=== PATIENT | male | born 1960 | race Caucasian/White ===

== ENCOUNTER 2022-09-14 09:54 | Outpatient (CLI) | payer OTHER, SELFPAY ==
--- NOTE | 2022-09-14 10:15 | MR_ITS ---
[address] [address] Phone:?[phone] Fax:?[phone] Referring Physician Information: Cruzito Rodriguez M.D. [id number] [facility] [address] Phone:?[phone] Fax:?[phone] Patient:Thu Monroe D.O.B:?1960 Sex:?Male Phone:?[phone] [facility] MRN:?[id number] Exam Date:?09/14/2022 ? EXAM: MRI OF THE LEFT KNEE CLINICAL INFORMATION: The patient is a 62-year-old with left knee pain. Evaluate for medial meniscal tear. PRIOR SURGERY: None reported. COMPARISON STUDIES: There are no prior studies available for comparison. TECHNICAL INFORMATION: Imaging was performed on a high-field, 1.5 Shaina MR scanner. Axial proton-density and fat-suppressed T2 imaging of the left knee was performed in addition to sagittal proton-density and fat-suppressed proton- density imaging. Coronal proton-density and coronal STIR imaging was also produced. FINDINGS: Articular/Extraarticular collections: Effusion: Moderate. Popliteal cyst: Small, seen on axial series 4 image 26. Loose bodies: No well-defined intra-articular loose bodies are present. Subcutaneous and extraarticular soft tissues: Nonspecific subcutaneous soft tissue edema and/or hemorrhage can be seen along the anterior aspect of the patella and patellar tendon on sagittal series 6 image 21. Osseous structures: Reactive marrow edema can be seen involving the medial femoral condyle and medial tibial plateau on coronal series 8 images 18 and 19, in keeping with the medial meniscal tearing discussed below. Additional reactive bony changes are seen involving the tibial spines. Cortical irregularity, subcortical cystic change, and subcortical edema can be seen along the articular surfaces of the patellofemoral articulation, in keeping with chondromalacia and chondral loss described below. No other bony abnormalities about the knee are present. Ligamentous structures: ACL: Intact and normal in appearance. PCL: Intact and normal in appearance. MCL: Intact and normal in appearance. LCL: Intact and normal in appearance. Posterolateral corner: Intact and normal in appearance. Posteromedial corner: No posteromedial corner soft tissue injury. Semimembranosus and pes anserine tendons demonstrate no tendinopathy or associated bursitis. Extensor mechanism/Patellar retinacular structures: Patellar tendon: Intact, without tendinopathy. Quadriceps tendon: Intact, without tendinopathy. Retinacula: The medial and lateral retinacula are intact. The medial patellofemoral ligament is intact. Medial compartment: Medial meniscus: The medial meniscus is abnormal in appearance. There is broad- based, complex, predominantly inferior surface and apical free edge tearing of the middle and posterior portions of the medial meniscus seen on coronal series 7 image 20 and on sagittal series 6 image 11. The broad-based area of tearing measures approximately 29 mm in mediolateral dimension and 28 mm in anteroposterior dimension. The anterior horn appears intact. No parameniscal cyst formation is identified. Medial femoral condyle: Grade II to III chondromalacia can be seen along the weightbearing surfaces of the medial femoral condyle. Medial tibial plateau: Grade II chondromalacia can be seen along the weightbearing surfaces of the medial tibial plateau. Lateral compartment: Lateral meniscus: No evidence for lateral meniscal tearing is present. No evidence for parameniscal cyst formation can be seen. Lateral femoral condyle: No chondromalacia, chondral defect, or osteochondral abnormality. Lateral tibial plateau: No chondromalacia, chondral defect, or osteochondral abnormality. Patellofemoral compartment: Patella: Full-thickness and near full-thickness chondral loss can be seen along the medial patellar facet with additional grade II to III chondromalacia of the patellar apex and lateral facet. Underlying bony changes are seen. Trochlea: Full-thickness and near full-thickness chondral loss can be seen along the central articular surfaces of the femoral trochlea on sagittal series 6 image 16 and on axial series 4 image 21. The area measures approximately 21 mm in greatest dimension. Underlying bony changes are present. Neurovascular: No definite neurovascular abnormalities are seen. CONCLUSION: 1. Broad-based, complex tearing of the middle and posterior portions of the medial meniscus. No lateral meniscal tearing is seen. 2. Chondromalacia and chondral loss can be seen involving the medial and patellofemoral joint compartments as described above. 3. Moderate knee joint effusion and small popliteal cyst. 4. The cruciate and collateral ligaments appear intact. 5. Reactive bony changes along the medial and patellofemoral joint compartments can be seen as described above. [facility] Electronically signed on 09/14/2022 1:13:00 PM by Ascencion Skelton M.D.
== END 2022-09-14 09:55 | disposition home or self-care (01) ==
PROVIDERS: PCP Nurse Practitioner Family; Visit Provider Orthopaedic Surgery Sports Medicine
DX: M25.562 Pain in left knee (principal); S83.242A Other tear of medial meniscus, current injury, left knee, initial encounter; M22.42 Chondromalacia patellae, left knee; M25.462 Effusion, left knee
CPT/HCPCS: 73721

== ENCOUNTER 2022-10-16 12:09 | Outpatient (CLI) | payer OTHER, SELFPAY ==
[2022-10-16 13:42] LABS: Albumin* 4.6 g/dL (3.3-5.0); Chloride* 102 mmol/L (96-114); Sodium* 139 mmol/L (135-149)
[2022-10-16 13:44] LABS: Carbon Dioxide* 29 mmol/L (20-32); Cholesterol* 172 mg/dL (90-199); Creatinine* 0.8 mg/dL (0.5-1.5); Estimated Glomerular Filt Rate 101 ml/min
[2022-10-16 13:45] LABS: Alanine Aminotransferase* 27 U/L (4-50); Alkaline Phosphatase* 85 U/L (40-150); Aspartate Amino Transferase* 29 U/L (12-35); Bilirubin Total* 1.5 mg/dL (0.1-1.5); Blood Urea Nitrogen* 13 mg/dL (7-30); Calcium* 9.4 mg/dL (8.4-10.6); Glucose* 100 mg/dL (60-115); HDL Cholesterol* 65 mg/dL (>=40); LDL Cholesterol Calculated 77 mg/dL (<100); Total Protein* 7.5 g/dL (6.0-8.3); Triglycerides* 151 mg/dL (40-149)
[2022-10-16 14:12] LABS: PSA Screen* 1.62 ng/mL (0.10-4.00)
== END 2022-10-16 12:10 | disposition home or self-care (01) ==
PROVIDERS: PCP Nurse Practitioner Family; Visit Provider Nurse Practitioner Family
DX: E78.5 Hyperlipidemia, unspecified (principal); I10 Essential (primary) hypertension; I97.3 Postprocedural hypertension; Z51.81 Encounter for therapeutic drug level monitoring; Z90.5 Acquired absence of kidney; Z12.5 Encounter for screening for malignant neoplasm of prostate
CPT/HCPCS: 80053; 80061; 84153

== ENCOUNTER 2022-11-07 07:22 | Day surgery (SDC) | payer OTHER, SELFPAY ==
[2022-11-07] VITALS (12 sets, daily range): BP systolic 113–155; BP diastolic 65–82; PULSE 56–88; RESP 12–21; TEMP 36.3–37.2; O2SAT 96–98; BMI 28.3
[2022-11-07] MEDS: LACTATED RINGERS 1000 ML 1,000 ML 100 ML IV (08:00)
[2022-11-07] MEDS: SODIUM CHLORIDE 0.9 % (FLUSH) 10 ML SYRINGE IVF (08:00)
--- NOTE | 2022-11-07 08:07 | W.ANESCHARGE ---
Anesthesia Charges Start Date/Time Anesthesia Start Date: 11/07/22 Anesthesia Start Time: 09:08 Stop Date/Time Anesthesia Stop Date: 11/07/22 Anesthesia Stop Time: 10:05
[2022-11-07] MEDS: CEFAZOLIN 2 GM in 0.9 % SODIUM CHLORIDE Mini-bag 100 ML IVPB (09:25)
[2022-11-07] MEDS: ROPIVACAINE 0.5% 30 ML 150 MG INJECTION (09:50)
--- NOTE | 2022-11-07 09:54 | P.ORPRC_ITS ---
Procedure Note Date of procedure: 11/07/22 Procedure: PREOPERATIVE DIAGNOSIS: 1. Left knee medial meniscus tear POSTOPERATIVE DIAGNOSIS: 1. Left knee medial meniscus tear 2. 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 Left knee arthroscopic partial medial meniscectomy 2. Left knee arthroscopic chondroplasty medial femoral condyle, loose chondral flaps SURGEON: Cruzito Rodriguez M.D. DIRECTOR OF REGIONAL SALES: Ashish COX. Of note, an spa assistant manager was critical for this case to aid in patient positioning, knee manipulation, instrument exchange, and closure. ANESTHESIA: Spinal EBL: 2ml TOURNIQUET: 25 minutes at 300 torr COMPLICATIONS: None evident INDICATIONS: The patient is a pleasant 62-year-old male who has experienced left knee pain particularly with any twisting or turning. Physical exam was concerning for medial meniscus tear, this was confirmed on MRI. Additionally, attempted nonoperative management has been tried, and failed. Thus, surgery was recommended. FINDINGS: Complex tearing posterior horn to midbody even approach an anterior horn medial meniscus. Grade 3 chondromalacia broadly throughout the weight- bearing portion medial femoral condyle. ACL and PCL were intact robust. Lateral compartment showed intact lateral meniscus and healthy articular cartilage. Trochlear groove showed grade 4 chondromalacia in a region measuring approximately 12 mm in diameter distally. Patella showed grade 3 chondromalacia patella median ridge. No loose bodies appreciated DESCRIPTION OF PROCEDURE: After a thorough discussion of risks, benefits, and alternatives, the patient was brought to the operating room and placed upon the operating table. Induction of anesthesia was undertaken as previously noted. 2g iv Ancef was administered within 1 hr of incision preoperatively. Appropriate time-out was performed identifying proper patient, site, and procedure. The left lower extremity was prepped and draped in the appropriate sterile fashion using ChloraPrep. The limb was exsanguinated and tourniquet inflated. Anterolateral and anteromedial portals were established with an 11 blade, and a diagnostic arthroscopy was performed. This identified the findings as noted above. Following the diagnostic arthroscopy, a partial medial menisectomy was performed with the combination of basket forceps and a motorized shaver. Following this, the meniscus was re-probed and found to be stable. Approximately 20-25 % of the overall meniscus required resection. At this stage, the shaver was reinserted into the suprapatellar pouch and all remaining meniscal debris was evacuated. Instruments were removed, excess fluid was drained, and closure performed with 4-0 Monocryl with Steri-Strips. Dressings were applied, the tourniquet deflated, and the patient was awoken from anesthesia and transferred to the PACU in stable condition. PLAN: 1. Weightbear as tolerated operative extremity. Crutch / walker ambulation assistance PRN. Straight leg raise to be initiated starting tomorrow by the patient. 2. Ice, acetominophen and/or ibuprofen, and Percocet for pain as needed. 3. Knee range of motion and quad sets/straight leg raise regularly 4. Follow up with PA visit in 7-10 days. for a wound check. Initiate physical therapy at that time
--- NOTE | 2022-11-07 10:11 | W.ANESCHARGE ---
Anesthesia Charges Start Date/Time Anesthesia Start Date: 11/07/22 Anesthesia Start Time: 09:08 Stop Date/Time Anesthesia Stop Date: 11/07/22 Anesthesia Stop Time: 10:05
[2022-11-07] MEDS: IBUPROFEN 200 MG TABLET 400 MG PO (11:01)
== END 2022-11-07 11:46 | disposition home or self-care (01) ==
PROVIDERS: PCP Nurse Practitioner Family; Visit Provider Orthopaedic Surgery Sports Medicine
PROC: (CPT 29870; principal; 2022-11-07 09:00)
DX: S83.231A Complex tear of medial meniscus, current injury, right knee, initial encounter (principal); M94.262 Chondromalacia, left knee
CPT/HCPCS: 29881; 01400; A9270; J0690; J1100; J2250; J2704; J2795; J3010; J3490; J7120

== ENCOUNTER 2023-01-02 11:00 | Outpatient (RCR) | payer OTHER, SELFPAY | END 2023-02-21 14:33 | disposition home or self-care (01) | PROVIDERS: PCP Nurse Practitioner Family; Visit Provider Orthopaedic Surgery Sports Medicine | DX: S83.232D Complex tear of medial meniscus, current injury, left knee, subsequent encounter (principal); M25.562 Pain in left knee; M62.81 Muscle weakness (generalized); Z98.890 Other specified postprocedural states; Z51.89 Encounter for other specified aftercare | CPT/HCPCS: 97110; 97112; 97140; 97161; 97530 ==

== ENCOUNTER 2023-11-22 09:23 | Outpatient (CLI) | payer OTHER, SELFPAY ==
--- OUTSIDE RECORDS SUMMARY | 2023-11-22 10:33 | XMS_ITS | Clinical Summary ---
Author Name Unknown Organization [facility] Address [place], [place] [address] Care Team Providers Care Press Writer Name Role Phone Pcp, No Primary Care Provider Unavailabl e Medications No known medications Social History Tobacco Use Types Packs/Day Years Used Date Smoking Tobacco: Never Assessed Sex and Gender Information Value Date Recorded Sex Assigned at Not on file Gender Identity Not on file Sexual Orientation Not on file Last Filed Vital Signs Vital Sign Reading Time Taken Comments Blood Pressure 133/87 05/07/2016 8:44 AM CDT Pulse 71 05/07/2016 8:44 AM CDT Temperature - - Respiratory Rate - - Oxygen Saturation 98% 05/07/2016 8:44 AM CDT Inhaled Oxygen Concentration - - Weight 88.9 kg (196 lb) 05/07/2016 8:44 AM CDT Height - - Body Mass Index - - Plan of Treatment Health Maintenance Due Date Last Done Comments Tdap 1973 Depression screening for age 12+ 1974 HIV for age 15-65 1977 BMI (ht and wt on same day) for age 18+ 1980 Hepatitis C screening for ag e 18-79 1980 Tetanus booster 1982 Colonoscopy through age 75 2007 Lipids for age 45-75 2007 Zoster (shingles) series for age 50+ (1 of 2) 2012 COVID-19 vaccine series (2022-24 season) 2023 Influenza for age 50-64 03/08/2024 Pneumococcal series for age 6-64 Aged Out No longer eligible based on patient's age to complete this topic Care Teams Press Writer Relationship Specialty Start Date End Date Pcp, No . PCP - General 05/07/16
== END 2023-11-22 09:24 | disposition home or self-care (01) ==
PROVIDERS: PCP Nurse Practitioner Family; Visit Provider Nurse Practitioner Family
DX: Z00.00 Encounter for general adult medical examination without abnormal findings (principal); I10 Essential (primary) hypertension; E78.5 Hyperlipidemia, unspecified; Z12.5 Encounter for screening for malignant neoplasm of prostate; Z13.0 Encounter for screening for diseases of the blood and blood-forming organs and certain disorders involving the immune mechanism; Z51.81 Encounter for therapeutic drug level monitoring
CPT/HCPCS: 80053; 80061; 85025; G0103

== ENCOUNTER 2023-12-06 12:00 | Outpatient (CLI) | payer OTHER, SELFPAY ==
--- OUTSIDE RECORDS SUMMARY | 2023-12-25 08:09 | XMS_ITS | Clinical Summary ---
Author Organization [facility] Address [place], [place] [address] Care Team Providers Care Horseback Excavator Name Role Phone Pcp, No Primary Care [...] age to complete this topic Care Teams Horseback Excavator Relationship Specialty Start Date End Date Pcp, No . PCP - General 05/07/16
== END 2023-12-06 12:01 | disposition home or self-care (01) ==
LOC: NFLDREF 12-25 08:07
PROVIDERS: PCP Nurse Practitioner Family; Referring Provider Nurse Practitioner Family; Visit Provider Nurse Practitioner Family
DX: I10 Essential (primary) hypertension (principal); Z51.81 Encounter for therapeutic drug level monitoring
CPT/HCPCS: 80048

== ENCOUNTER 2024-02-03 06:29 | Outpatient (CLI) | payer OTHER, SELFPAY ==
--- OUTSIDE RECORDS SUMMARY | 2024-02-03 06:30 | XMS_ITS | Clinical Summary ---
Author Organization [facility] Address [place], [place] [address] Care Team Providers Care Ropewalk Rope Maker Name Role Phone Pcp, No Primary Care [...] age to complete this topic Care Teams Ropewalk Rope Maker Relationship Specialty Start Date End Date Pcp, No . PCP - General 05/07/16
--- NOTE | 2024-02-03 08:08 | W.ANESCHARGE ---
Anesthesia Charges Start Date/Time Anesthesia Start Date: 02/03/24 Anesthesia Start Time: 07:30 Stop Date/Time Anesthesia Stop Date: 02/03/24 Anesthesia Stop Time: 08:04
== END 2024-02-03 06:30 | disposition home or self-care (01) ==
LOC: OP CLINIC 06:29
PROVIDERS: PCP Nurse Practitioner Family; Visit Provider Surgery
DX: Z12.11 Encounter for screening for malignant neoplasm of colon (principal); K63.5 Polyp of colon; Z83.719 Family history of colon polyps, unspecified
CPT/HCPCS: 00811; 45385; 88305; J2704

== ENCOUNTER 2024-11-13 12:40 | Outpatient (CLI) | payer BC, SELFPAY | END 2024-11-13 12:41 | disposition home or self-care (01) | PROVIDERS: PCP Nurse Practitioner Family; Visit Provider Nurse Practitioner Family | DX: E78.5 Hyperlipidemia, unspecified (principal); I10 Essential (primary) hypertension; Z12.5 Encounter for screening for malignant neoplasm of prostate; Z13.0 Encounter for screening for diseases of the blood and blood-forming organs and certain disorders involving the immune mechanism | CPT/HCPCS: 80053; 80061; 85025; G0103 ==